=== PATIENT | female | born 1995 | race Caucasian/White ===

== ENCOUNTER → 2018-08-07 12:58 | Outpatient (CLI) | payer SELFPAY ==
--- NOTE | 2018-08-07 | DI.MRI.S_ITS ---
PROCEDURE: MR LUMBAR SPINE WO CON INDICATIONS: Radiculopathy, site unspecified TECHNIQUE: Noncontrast sagittal T1 spin echo and T2 fast echo, sagittal STIR, axial T1 and T2 fast spin echo through the lumbar spine. In cases with scoliosis, additional coronal T2 fast spin echo may be performed. COMPARISON: None. FINDINGS: Image quality: Excellent. Alignment and Curvature: There is normal bony alignment. Bone Marrow: There are Schmorl's nodes in vertebral endplates at multiple levels. Marrow is of normal overall signal. No acute vertebral body compression fractures. Spinal Cord: Conus medullaris terminates at the T12-L1 level. Visualized cord demonstrates normal signal and size. Paraspinous Soft Tissues: No paravertebral masses. L1-L2: Preserved disc height. Endplate irregularity and small Schmorl's. No central canal or foraminal stenosis. L2-L3: Preserved disc height. Endplate irregularity and small Schmorl's. No central canal or foraminal stenosis. L3-L4: Normal appearance. L4-L5: Moderate loss of disc height and disc desiccation. There is diffuse posterior disc bulge protrusion and superimposed left posterior paramedian extrusion with an extruding disc measuring 10 mm AP x 13 mm transverse and 15 mm cephalocaudal, which is extending superiorly to the disc level, occupying the left lateral recess impinging the left L5 nerve root. The central canal is mildly narrowed. There is severe narrowing of the left lateral recess. Moderate left and mild right foraminal stenosis.. L5-S1: Preserved disc height and disc signal. Mild posterior disc bulge. No central canal or foraminal stenosis. IMPRESSION: 1. Multilevel degenerative disc disease and facet arthropathy as described. 2. There is disc extrusion at L4-L5 with the extruding disc measuring 10 x 13 x 15 mm, which occupies the left lateral recess causing severe narrowing of the left lateral recess at L4-L5 and impingement of the left L5 nerve root. 3. Mild central canal stenosis at L4-L5. 4. Moderate left and mild right foraminal stenosis at L4-L5. Dictated by: Trent Silva M.D. on 08/09/2018 at 8:03 Transcribed by: KEM on 08/09/2018 at 8:11 Approved by: Trent Silva M.D. on 08/09/2018 at 10:55
== END ==
PROVIDERS: PCP Nurse Practitioner Family; Visit Provider Nurse Practitioner Family
DX: M51.16 Intervertebral disc disorders with radiculopathy, lumbar region (principal); M51.17 Intervertebral disc disorders with radiculopathy, lumbosacral region; M47.26 Other spondylosis with radiculopathy, lumbar region; M48.061 Spinal stenosis, lumbar region without neurogenic claudication; M51.46 Schmorl's nodes, lumbar region
CPT/HCPCS: 72148

== ENCOUNTER → 2021-01-08 12:33 | Outpatient (CLI) | payer OTHER, SELFPAY ==
[2021-01-08] MEDS: COVID-19 VACC #1, MRNA(MOD) 100 MCG/0.5 ML VIAL IM (12:40)
== END ==
PROVIDERS: PCP Nurse Practitioner Family; Visit Provider Internal Medicine
DX: Z23 Encounter for immunization (principal)
CPT/HCPCS: 0011A; 91301